=== PATIENT | male | born 1950 | race Two or more races ===

== ENCOUNTER 2021-04-12 10:27 | Emergency (ER) | payer MEDICARE, BC ==
[~2021-04-12] VITALS: Ht 172.7 cm; Wt 77.0 kg
[2021-04-12 11:21] LABS: CLARITY,URINE SLIGHTLY CLOUDY (Clear); COLOR,URINE ORANGE (Yellow); UA COLLECTION TYPE URINAL
[2021-04-12 11:41] LABS: BACTERIA,URINE NONE SEEN /HPF (Neg); MUCUS STRANDS FEW /LPF (Neg); SQUAMOUS EPITHELIAL CELL,UR FEW /LPF (FEW); TRANSITIONAL EPI CELLS,URINE FEW /HPF
[2021-04-12] MEDS ORDERED: CEPH250T PO (12:16)
[2021-04-12] MEDS ORDERED: cephalexin 250mg capsule PO ONE (12:50)
--- NOTE | 2021-04-12 13:45 | NUR ---
elevated bp upon dc, provider aware. educated on fc care and leg bag training. pt verbalized understanding of instructions.
[2021-04-12 14:10] VITALS: BP 176/112
== END 2021-04-12 14:10 | disposition home or self-care (01) ==
LOC: ER 10:28
DX: R33.9 Retention of urine, unspecified (principal); K59.00 Constipation, unspecified; Z87.440 Personal history of urinary (tract) infections; Z91.011 Allergy to milk products; Z79.2 Long term (current) use of antibiotics
CPT/HCPCS: 51702; 81001; 87088; 99284

== ENCOUNTER 2021-04-15 19:24 | Emergency (ER) | payer MEDICARE, BC ==
[~2021-04-15] VITALS: Ht 172.7 cm; Wt 65.5 kg
[~2021-04-15 19:24] MED LIST: CEPH250T PO
[2021-04-15 19:44] VITALS: BP 146/92
== END 2021-04-16 00:19 | disposition left against medical advice (07) ==
LOC: ER 19:24
DX: R33.9 Retention of urine, unspecified (principal); R31.9 Hematuria, unspecified; N40.0 Benign prostatic hyperplasia without lower urinary tract symptoms; Z91.011 Allergy to milk products; Z79.2 Long term (current) use of antibiotics
CPT/HCPCS: 99281